=== PATIENT | female | born 1960 | race African-American/Black ===

== ENCOUNTER 2024-12-19 07:09 | Emergency (ER) | payer MEDICAID ==
[~2024-12-19] VITALS: Ht 157.5 cm; Wt 75.0 kg
[2024-12-19 07:19] VITALS: O2SAT 98
[2024-12-19] MEDS ORDERED: MORPHINE SULFATE 4 MG/ML INJ (FOR IV/IM USE) IV STA (07:48)
[2024-12-19 08:21] LABS: CHLORIDE 111 mEq/L (98-107); POTASSIUM 4.5 mEq/L (3.5-5.1); SODIUM 139 mEq/L (136-145)
[2024-12-19 08:22] LABS: CALCIUM 9.7 mg/dL (8.7-10.4); CARBON DIOXIDE 21 mEq/L (21-32)
[2024-12-19 08:26] LABS: BASOPHILS % 0.6 % (0.0-2.0); EOSINOPHILS % 2.5 % (0.0-5.0); HEMATOCRIT. 45.2 % (36.0-48.0); HEMOGLOBIN. 14.4 g/dL (12.0-16.0); LYMPHOCYTES % 27.1 % (20.0-50.0); MEAN CORPUSCULAR HGB CONC 31.9 g/dL (31.0-37.0); MEAN CORPUSCULAR VOLUME 103.4 fL (81.0-99.0); MEAN PLATELET VOLUME 8.8 fl (7.4-10.4); MONOCYTES % 8.4 % (2.0-8.0); NEUTROPHILS % 61.4 % (40.0-76.0); PLATELET 183 x1000/uL (130-400); RED BLOOD CELL COUNT 4.37 mill/uL (4.2-5.4); RED CELL DISTRIBUTION WIDTH 14.6 % (11.6-14.6); WHITE BLOOD COUNT 8.3 x1000/uL (4.5-11.0)
[2024-12-19 08:27] LABS: GLUCOSE 102 mg/dL (70-105); UREA NITROGEN BLOOD 11 mg/dL (9-23)
[2024-12-19 08:35] LABS: DIFFERENTIAL COMMENT 1
[2024-12-19 09:43] VITALS: BP 187/84; PULSE 92; TEMP 36.9; O2SAT 96
[2024-12-19] MEDS: KETOROLAC 30MG/ML VIAL IV ONE (09:43)
[2024-12-19 09:56] LABS: TROPONIN I HIGH SENSITIVITY 13 ng/L (3.0-34)
[2024-12-19 11:11] VITALS: RESP 15; TEMP 98.4
[2024-12-19] MEDS: ASPIRIN 325MG EC TABLET PO ONE (11:28)
== END 2024-12-19 11:27 | disposition left against medical advice (07) ==
LOC: ER 07:09
DX: R07.89 Other chest pain (principal); I10 Essential (primary) hypertension; Z79.899 Other long term (current) drug therapy
CPT/HCPCS: 80048; 83880; 85025; 84484; 36415; 71045; 93005; 96374; 99285; J1885; Z7610 ×3; A4606